=== PATIENT | male | born 1950 | race Caucasian/White ===

== ENCOUNTER → 2017-01-02 | Outpatient (CLI) | payer MEDICARE, OTHER ==
--- NOTE | ~2017-01-02 | CR63 ---
[facility] A Service of [facility] & [facility] RADIOLOGY TEXT RESULTS PATIENT: LORRAINE SUE LOCATION: [facility] : 46 UNIT #: [id number] AGE: [address]: ASTER HEART APRN SEX: M ORDER DR: [id number] [facility] [address] [place], [place] [address] [id number] O MR#: [id number] Acc #: [id number] NAME: LORRAINE SUE : 1950 SEX: M STUDY DATE/TIME: 01/02/2017 9:52 UNIT: [facility] ROOM: STUDY DESCRIPTION: CR Chest 2 View Attending Physician: Raquel Heart M.D. Referring Physician: Raquel Heart M.D. Ordering Physician: Raquel Heart M.D. Primary Care Physician: Keyur Zamorano M.D. MEDICAL IMAGING REPORT This report is preliminary unless electronic signature is present EXAM Two-view chest 01/02/2017. HISTORY 66-year-old male with shortness of air for 3-4 months. Essential hypertension. COMPARISON None. FINDINGS 2 views of the chest demonstrates patchy bibasilar atelectasis/infiltrate. No pleural effusions or pneumothorax. Mild cardiomegaly. Mediastinum and pulmonary vasculature unremarkable. IMPRESSION 1. Mild patchy bibasilar atelectasis/infiltrate. 2. Cardiomegaly. Dictated by... Ruben Kebede M.D. THIS IS AN ELECTRONICALLY VERIFIED REPORT Ruben Kebede M.D. at 01/02/2017 3:05 PM JAYA/[place] TD: 01/02/2017 14:19 JOB #: [id number] MEDICAL IMAGING REPORT Page 1 of 1 COPY
== END | disposition home or self-care (01) ==
LOC: CRAD 09:31
DX: R06.02 Shortness of breath (principal); R60.0 Localized edema; J98.11 Atelectasis; I51.7 Cardiomegaly
CPT/HCPCS: 71020

== ENCOUNTER → 2017-01-04 | Outpatient (CLI) | payer MEDICARE, OTHER | END | disposition home or self-care (01) | LOC: CECH 08:56 | DX: R60.0 Localized edema (principal); I51.7 Cardiomegaly; I36.1 Nonrheumatic tricuspid (valve) insufficiency; I34.0 Nonrheumatic mitral (valve) insufficiency | CPT/HCPCS: 93306 ==

== ENCOUNTER → 2017-01-16 | Outpatient (CLI) | payer MEDICARE, OTHER ==
--- NOTE | ~2017-01-16 | CR63 ---
[facility] A Service of [facility] & [facility] RADIOLOGY TEXT RESULTS PATIENT: LORRAINE SUE LOCATION: [facility] : 46 UNIT #: [id number] AGE: [address]: YEISON HEART APRN SEX: M ORDER DR: [id number] [facility] [address] [place], [place] [address] [id number] O MR#: [id number] Acc #: [id number] NAME: LORRAINE SUE : 1950 SEX: M STUDY DATE/TIME: 01/16/2017 11:33 UNIT: [facility] ROOM: STUDY DESCRIPTION: CR Chest 2 View Attending Physician: Raquel Heart M.D. Referring Physician: Yeison Heart Ordering Physician: Raquel Heart M.D. Primary Care Physician: Keyur Zamorano M.D. MEDICAL IMAGING REPORT This report is preliminary unless electronic signature is present EXAM Chest, 2 views, dated 01/16/2017. COMPARISON Chest 2 views dated 01/02/2017. HISTORY Follow up pneumonia. Shortness of air for 3 days. High blood pressure. FINDINGS Two views of the chest were obtained. Lungs are well-aerated. Stable borderline size to mild cardiomegaly. No superimposed acute cardiopulmonary disease. Endplate osteophytes are at multiple levels of the [id number] T-spine. Dictated by... Jennifer Hanna M.D. THIS IS AN ELECTRONICALLY VERIFIED REPORT Jennifer Hanna M.D. at 01/17/2017 2:48 PM CPR/jt TD: 01/16/2017 22:46 JOB #: [id number] MEDICAL IMAGING REPORT Page 1 of 1 COPY
== END | disposition home or self-care (01) ==
LOC: CRAD 11:08
DX: J18.9 Pneumonia, unspecified organism (principal)
CPT/HCPCS: 71020